=== PATIENT | female | born 1930 | race Caucasian/White ===

== ENCOUNTER → 2016-06-06 | Outpatient (CLI) | payer MEDICARE ==
[~2016-06-06] MED LIST: ALIGN4 MG PO; AZILECT1 MG PO; CARBIDOPA AND L1 TA2 PO; DOCUSATE SODIU100 MG PO; LEVAQUIN500 MG PO; LEXAPRO 10 MG T10 MG PO; MELOXICAM7.5 MG PO; MIRAPEX 1 MG TAB1 MG PO; NORCO 325 MG-51 TAB PO; ONE DAILY FOR1 EACH PO; PEPCID 20MG TAB20 MG PO; TOPROL XL 25MG25 MG PO; ZOFRAN4 MG PO
--- NOTE | 2016-06-06 19:45 | RADIOLOGY REPORT PS360 ---
HAND-RT 3 VIEWS HISTORY: Right hand pain OSTEOARTHRITIS ORDERING PHYSICIAN: Sandi Capps APRN PATIENT AGE: 85 years COMPARISON: None FINDINGS: No fracture or dislocation. No lytic or blastic change. There is normal mineralization. The joint spaces are well-preserved. No significant degenerative/arthritic changes. No erosive changes evident. No erosive changes are evident. There is normal mineralization with no significant degenerative change. IMPRESSION: Negative right hand
--- NOTE | 2016-06-06 19:46 | RADIOLOGY REPORT PS360 ---
WRIST-3 VIEWS-RT HISTORY: Right wrist pain OSTEOARTHRITIS ORDERING PHYSICIAN: Sandi Capps APRN PATIENT AGE: 85 years COMPARISON: None FINDINGS: No fracture or dislocation. No lytic or blastic change. There is normal mineralization.. The joint spaces are well-preserved. No significant degenerative/arthritic changes. No erosive changes evident.. No erosive changes evident IMPRESSION: Negative right wrist
[2016-06-07 12:41] LABS: RA Latex Turbid. <10.0 IU/mL (0.0-13.9)
[2016-06-08 07:44] LABS: Antinuclear Antibodies, IFA Negative (.)
== END ==
LOC: RAD 09:59
PROVIDERS: Nurse Practitioner Family
DX: M19.041 Primary osteoarthritis, right hand (principal); M13.141 Monoarthritis, not elsewhere classified, right hand

== ENCOUNTER 2017-01-19 20:14 | Emergency (ER) | payer MEDICARE ==
[~2017-01-19] VITALS: Ht 165.1 cm; Wt 59.0 kg
[~2017-01-19 20:14] MED LIST changes: +MULTI-DAY VITA1 EACH PO; +STOOL SOFTENER50 MG PO
[2017-01-19] MEDS ORDERED: MACRODANTIN50 MG PO (20:34)
--- NOTE | 2017-01-19 20:34 | Emergency Room Report ---
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 REPORTS THAT SHE IS STILL HURTING IN HER CHEST. AND REPORTS THAT SHE FEELS LIKE IT IS STILL THERE. 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 N Clinical Suspician of Infection? N Mental Status: 1 - Regular (Normal Baseline) Sepsis Risk:Low Sepsis Risk Have you (or family members/close friends) recently traveled outside the [place]? N If Yes, where/when: Have you had exposure to infectious disease within the past month? N TB? Other? Specify: Source patient, RN notes reviewed, family, EMS, old records Exam Limitations no limitations Comment pt withhx of episodes of dysphagia with choking episode tonight while eating -no chest pain reported Cardiac Chest Pain Chest pain indicative of cardiac No Timing/Duration this evening Severity moderate ALLERGIES Coded Allergies: Penicillins (I-RASH 05/25/16) Sulfa (Sulfonamide Antibiotics) (05/01/16) Home Medications Active Scripts Bifidobacterium Infantis (Align) 4 MG PO DAILY #30 CAP Ref 2 Prov: 05/03/16 Reported Medications Carbidopa/Levodopa (Carbidopa-Levodopa 25-100 Tab) 1.5 TAB PO TID Metoprolol Succinate Xl (Toprol Xl) 25 MG PO DAILY Escitalopram Oxalate (Lexapro 10MG) 10 MG PO DAILY Famotidine (Pepcid 20MG Tablet) 20 MG PO BID RASAGILINE MESYLATE (Azilect) 1 MG PO DAILY Meloxicam (Meloxicam 7.5MG) 7.5 MG PO DAILY #30 TAB Pramipexole Dihydrochloride (Mirapex 1 Mg Tablet) 1 MG PO TID Docusate Sodium (Stool Softener) 50 MG PO EVERYOTHER PRN STOOL SOFTNER Multivitamin (Multi-Day Vitamins) 1 EACH PO DAILY HYDROCODONE/ACETAMINOPHEN ([place] 5-325 Tablet) 1 TAB PO Q4HP PRN PAIN ONDANSETRON HCL (Zofran 4MG Tab) 4 MG PO Q6HP PRN NAUSEA AND VOMITING NITROFURANTOIN MACROCRYSTAL (Macrodantin Capsule) 1 CAP PO DAILY Urine Leukocyte Test (AZO) 1 EACH DAILY History Medical History General CAD? No Angina: No VT: No Hypertension? No Hyperlipidemia? No CHF? No DVT? No PE? No COPD? No Asthma? No Anemia? No GERD? Yes Gastric ulcers? No GI Bleed? No Hernia? No Thyroid Problems? No Hypothyroidism? No CVA? No Seizures? No Diabetes? No Renal Insuffiency? No End Stage Renal Disease? No UTI? No Stones? No GB Disease: No Nephritic Syndrome? No Asplenia? No Hepatitis? No Sickle Cell Disease? No Arthritis? No Migraines? No Cataracts? No Glaucoma? No MRSA? No HIV? No TB? No Anxiety? No Depression? No Cancer? No More? Yes Additional hx: PARKINSONS Immunization Hx DT/Tetanus Unknown Flu 2015-FSN Pneumonia Received In Past Surgical Hx Previous Surgery?Y BLADDER STIMULATOR KIDNEY STONE WRIST Family History Family Hx Diabetes No CAD Yes Hypertension Yes Hyperlipidemia No Cancer No TB No Social History Smoking Hx Smoker: Never Smoker Tobacco: No Alcohol Alcohol: No Drugs none Additionial History Additional History pt with parkinsons Review of Systems All Other Systems Reviewed and Negative Constitutional denies fever Eyes denies drainage ENT denies: ear discharge, epistaxis, throat pain. Respiratory denies cough, denies shortness of breath, denies wheezing Cardiovascular denies chest pain, denies syncope Gastrointestinal denies abdominal pain, denies vomiting Genitourinary denies: dysuria, frequency, hesitancy, hematuria. Musculoskeletal denies back pain, denies joint pain, denies joint swelling, denies neck pain Skin denies rash Psychiatric/Neurological denies headache, denies seizure Physical Exam Vital Signs Vital Signs Date Time Temp Pulse Resp B/P Pulse O2 O2 Flow FiO2 Ox Delivery Rate 01/191 76 20 172/68 97 4 01/19 2014 98.1 75 20 189/63 93 3 - WBC >12,000 or <4,000 or 10% bands? 2 or more SIRS Criteria Met? B/P: MAP:105 Creatinine >2.0? UA output<0.5ml/kg/hr for 2 hrs? Platelet count >100,000? Lactate >2.0mmol/1? INR >1.2 or PTT > than 60 sec? Evidence of Organ Dysfunction? Provider documented clinical suspician of infection? N Sepsis Criteria Count: 1 Sepsis Risk: Low Sepsis Risk General Appearance no apparent distress Eye Exam - bilateral eye PERRL, bilateral eye EOMI Ear, Nose, Throat normal ENT inspection Neck non-tender Respiratory Status No: respiratory distress. Lung Sounds bilateral: lungs clear. 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 No Results/Orders Laboratory Tests 01/19/172029: Troponin I < 0.02 01/19/172029: Sodium 138, Potassium 3.9, Chloride 105, Carbon Dioxide 28, BUN 21 H, Creatinine 0.9, Estimated Creat Clear 41 L, Estimated GFR (MDRD) 59, Glucose 93 , Calcium 8.6, Total Bilirubin 0.3, AST 8 L, ALT 5 L, Alkaline Phosphatase 128 H, Total Protein 7.9, Albumin 3.1 L, Globulin 4.8 H, Albumin/Globulin Ratio 0.6 L, WBC 6.6, RBC 3.96 L, Hgb 11.4 L, Hct 35.2 L, MCV 88.9, RDW 12.9, Plt Count 237, MPV 8.1, Gran % 67.1, Gran # 4.4, Lymphocytes % 22.5, Monocytes % 6.4 , Eosinophils % 3.6, Basophils % 0.5, Lymphocytes # 1.5, Monocytes # 0.4, Eosinophils # 0.2, Basophils # 0.0, PUBS MCHC 32.3, MCH 28.7 Current Medication Orders Sig/Luz Start time Last Medication Dose Route Stop Time Status Admin Famotidine 20 MG ONCE ONE 01/19 2100 DC 01/19 IV 01/19 Metoclopramide HCl 5 MG ONCE ONE 01/19 2100 DC 01/19 IVP 01/19 Sodium Chloride 8 ML ONCE ONE 01/19 2100 DC 01/19 IV 01/19 Famotidine 0 .STK-MED ONE 01/19 2055 DC IV Metoclopramide HCl 0 .STK-MED ONE 01/19 2053 DC .ROUTE Sodium Chloride 10 ML PRN PRN 01/19 2030 AC 01/19 IV 01/20 Orders Procedure Date/time Status TROPONIN I 01/19 2145 Complete ELECTROCARDIOGRAM REQUEST 01/19 2031 Active NECK SOFT TISSUE 01/19 2023 Active CHEST-PORTABLE 01/19 2023 Active IV SALINE LOCK 01/19 2023 Active CBC WITH AUTO DIFF 01/19 2023 Complete CHEM 12 PROFILE 01/19 2023 Complete CM/EKG CM/pattern filer Rhythm Normal Sinus Rhythm EKG compared w/(date of old), non-spec. ST/Twave chgs XRAY/CT/US XRAY/CT/US XRAY chest, neck - soft tissue ok Progress ED Progress Notes Date 01/19/17 Time 2218 Comment able to swal liquids Departure Departure Time of Disposition 2218 Disposition DC Home or Self Care(routine) Clinical Impression Primary Impression: Swallowing dysfunction Condition STABLE Referrals Gilbert Bush MD (Family) Patient Instructions Esophageal Dysphagia Additional Instructions call pcp and gi for follow up Discharge Counseling Counseled pt/family regarding diagnosis, test results, follow up needs ED Critical Care Critical Care No at 2223
[2017-01-19] MEDS ORDERED: AZO1 EACH MC (20:35)
[2017-01-19 20:57] LABS: HEMOGLOBIN 11.4 g/dL (12.2-16.2); LYMPH # 1.5 K/mm3 (0.7-4.5); LYMPH % 22.5 % (10-50.0)
[2017-01-19 22:30] VITALS: BP 170/89
--- NOTE | 2017-01-20 06:25 | RADIOLOGY REPORT PS360 ---
NECK SOFT TISSUE HISTORY: COPD, foreign body evaluation POSSIBLE FOOD STUCK ORDERING PHYSICIAN: Cyrus Soliman MD PATIENT AGE: 86 years COMPARISON: None FINDINGS: No radio opaque foreign body apparent several opacities are present at the glottic region on the lateral view probably combination of vascular calcification and calcification of the larynx. CT may be of further value clinically warranted if there is high suspicion of foreign body there is some increased soft tissue density in the region of the aryepiglottic fold. There are some asymmetric soft tissue density on the right at the level of the vocal fold on the frontal view. This may be better evaluated with CT if clinically warranted. No soft tissue gas. IMPRESSION: 1. No definite radio opaque foreign body. 2. Some asymmetry in the soft tissues as described above which may be better evaluated with CT
--- NOTE | 2017-01-20 06:28 | RADIOLOGY REPORT PS360 ---
CHEST-PORTABLE HISTORY: Cough, choking POSSIBLE FOOD STUCK ORDERING PHYSICIAN: Cyrus Soliman MD PATIENT AGE: 86 years COMPARISON: 05/01/2016 FINDINGS: There is cardiomegaly without failure. There is chronic coarsening of bronchovascular markings. There is indentation upon the right side of the trachea thoracic inlet as before and may be due to thyroid enlargement. No lobar consolidation or collapse. IMPRESSION: 1. No acute finding. 2. Cardiomegaly with chronic changes. 3. Suspect right thyroid nodule or enlargement
== END 2017-01-19 22:31 | disposition home or self-care (01) ==
LOC: ER 20:14
PROVIDERS: Emergency Medicine
DX: R13.10 Dysphagia, unspecified (principal); G20 Parkinson's disease; Z88.0 Allergy status to penicillin; Z88.2 Allergy status to sulfonamides; Z79.899 Other long term (current) drug therapy; K21.9 Gastro-esophageal reflux disease without esophagitis